=== PATIENT | female | born 1980 | race Caucasian/White ===

== ENCOUNTER 2016-07-12 21:57 | Emergency (ER) | payer OTHER ==
[~2016-07-12] VITALS: Ht 152.4 cm; Wt 48.5 kg
[2016-07-12 22:06] VITALS: Ht 152.4 cm; Wt 48.5 kg
[2016-07-12] MEDS ORDERED: ASPIRIN 81 MG TAB PO STA (23:29)
[2016-07-12] MEDS ORDERED: LORAZEPAM 2 MG INJ IV ONE (23:30)
--- NOTE | 2016-07-12 23:48 | RADRPT ---
PROCEDURE: XR Chest. CLINICAL INDICATION: Chest pain. TECHNIQUE: AP Portable chest. COMPARISON: None available FINDINGS: The soft tissues and bones are normal. No focal infiltrates, masses, or effusions are noted. The m ediastinum and heart are normal. No pneumothorax is present. IMPRESSION: 1. No radiographic evidence for acute cardiopulmonary disease 2. Hyperinflation and correlate with reactive airway disease. RPTAT: HDC .Theresa Stockton MD, MD Date Time Electronically viewed and signed by .Theresa Stockton MD, MD on 07/12/2016 23:48 .C/
[2016-07-12 23:55] LABS: CHLORIDE 107 mmol/L (97-110)
[2016-07-12 23:56] LABS: POTASSIUM 3.5 mmol/L (3.5-5.1); SODIUM 145 mmol/L (135-144)
[2016-07-12 23:58] LABS: CREATININE 0.64 mg/dl (0.44-1.00)
[2016-07-12 23:59] LABS: ANION GAP 17 (8-16); BLOOD UREA NITROGEN 14 mg/dl (7-20); CALCIUM 9.2 mg/dl (8.4-10.2); CARBON DIOXIDE 25 mmol/L (21-31); GLUCOSE 67 mg/dl (70-220)
[2016-07-13 00:03] LABS: PROTIME 13.2 Sec (12.2-14.2)
[2016-07-13 00:04] LABS: PARTIAL THROMBOPLASTIN TIME 32.3 Sec (25.0-35.0)
[2016-07-13 00:12] LABS: TROPONIN-I < 0.010 ng/ml (0.00-0.12)
[2016-07-13 00:20] LABS: BASOPHILS % 0.9 % (0.0-2.0); CONDITION 1; EOSINOPHILS # 0.1 10^3/ul (0.0-0.5); EOSINOPHILS % 2.5 % (0.0-7.0); HEMATOCRIT 31.1 % (37.0-47.0); HEMOGLOBIN 9.9 g/dl (12.0-16.0); LH ANALYZER COMMENTS 1; LYMPHOCYTES # 1.8 10^3/ul (0.8-2.9); LYMPHOCYTES % 33.5 % (15.0-51.0); MEAN CORPUSCULAR HEMOGLOBIN 23.3 pg (29.0-33.0); MEAN CORPUSCULAR HGB CONC 31.8 g/dl (32.0-37.0); MEAN CORPUSCULAR VOLUME 73.1 fl (82.0-101.0); MEAN PLATELET VOLUME 11.2 fl (7.4-10.4); MONOCYTE # 0.5 10^3/ul (0.3-0.9); MONOCYTES % 8.8 % (0.0-11.0); NEUTROPHIL # 2.9 10^3/ul (1.6-7.5); NEUTROPHILS % 54.3 % (39.0-77.0); PLATELET COUNT 242 10^3/UL (140-440); RED BLOOD COUNT 4.25 10^6/ul (4.20-5.40); RED CELL DISTRIBUTION WIDTH 16.8 % (11.5-14.5); SUSPECT 1; UNCORRECTED WBC 5.4 10^3/ul (4.8-10.8); WHITE BLOOD COUNT 5.4 10^3/ul (4.8-10.8)
[2016-07-13 03:42] LABS: URINE BLOOD (Dip) POC Negative (NEGATIVE)
[2016-07-13 03:55] VITALS: BP 108/69; PULSE 68; RESP 16; TEMP 98.9
--- NOTE | 2016-07-13 04:13 | ERD ---
ER Documentation Chief Complaint Date/Time DATE: 07/13/16 TIME: 04:11 Chief Complaint SOb, nausea, CP and L arm pain. ROS All systems reviewed and are negative except as per history of present illness. Allergies Allergies: Coded Allergies: No Known Allergy (Unverified , 07/12/16) PMhx/Soc Medical and Surgical Hx: pt denies Medical Hx History of Surgery: Yes ( x3, hysterectomy) Anesthesia Reaction: No Hx Neurological Disorder: No Hx Respiratory Disorders: No Hx Cardiac Disorders: No Hx Psychiatric Problems: No Hx Miscellaneous Medical Probl: No Hx Alcohol Use: Yes (social drinker) Hx Substance Use: No Hx Tobacco Use: No Smoking Status: Never smoker Physical Exam Vitals Vital Signs Date Time Temp Pulse Resp B/P Pulse Ox O2 Delivery O2 Flow Rate FiO2 07/13/16 03:55 98.9 68 16 108/69 99 Room Air 07/13/16 02:30 92 16 108/62 100 Nasal Cannula 2.0 07/12/16 23:55 98.9 74 16 126/79 100 Nasal Cannula 2.0 07/12/16 23:54 Nasal Cannula 2 07/12/16 22:06 97.8 91 100 124/64 100 Physical Exam Const: [] Head: Atraumatic Eyes: Normal Conjunctiva ENT: Normal External Ears, Nose and Mouth. Neck: Full range of motion..~ No meningismus. Resp: Clear to auscultation bilaterally Cardio: Regular rate and rhythm, no murmurs Abd: Soft, non tender, non distended. Normal bowel sounds Skin: No petechiae or rashes Back: No midline or flank tenderness Ext: No cyanosis, or edema Neur: Awake and alert Psych: Normal Mood and Affect Result Diagram: 07/12/165 07/12/162314 Results 24 hrs Laboratory Tests Test 07/12/16 23:15 07/13/16 02:22 07/13/16 03:42 Activated Partial Thromboplast Time 32.3Sec Anion Gap 17 Basophils # 0.010^3/ul Basophils % 0.9% Blood Morphology Comment Blood Urea Nitrogen 14mg/dl Calcium Level 9.2mg/dl Carbon Dioxide Level 25mmol/L Chloride Level 107mmol/L Creatinine 0.64mg/dl Eosinophils # 0.110^3/ul Eosinophils % 2.5% Glucose Level 67mg/dl Hematocrit 31.1% Hemoglobin 9.9g/dl INR International Normalized Ratio 1.00 Lymphocytes # 1.810^3/ul Lymphocytes % 33.5% Mean Corpuscular Hemoglobin 23.3pg Mean Corpuscular Hemoglobin Concent 31.8g/dl Mean Corpuscular Volume 73.1fl Mean Platelet Volume 11.2fl Monocytes # 0.510^3/ul Monocytes % 8.8% Neutrophils # 2.910^3/ul Neutrophils % 54.3% Nucleated Red Blood Cells # 0.010^3/ul Nucleated Red Blood Cells % 0.0/100WBC Platelet Count 38331^3/UL Potassium Level 3.5mmol/L Prothrombin Time 13.2Sec Prothrombin Time Ratio 1.0 Red Blood Count 4.2510^6/ul Red Cell Distribution Width 16.8% Sodium Level 145mmol/L Troponin I < 0.010ng/ml < 0.012ng/ml White Blood Count 5.410^3/ul Bedside Urine Blood Negative Bedside Urine Glucose (UA) Negative Bedside Urine Ketones (LAB) Negative Bedside Urine Leukocyte Esterase (L Negative Bedside Urine Nitrite (LAB) Negative Bedside Urine Protein (LAB) Negative Bedside Urine pH (LAB) 6.5 Current Medications Medications (Trade) Dose Ordered Sig/Colton Route PRN Reason Start Time Stop Time Status Last Admin Dose Admin Aspirin (Aspirin) 162 mg ONCE STAT PO 07/12/16 23:29 07/12/16 23:32 DC 07/12/16 23:49 Lorazepam (Ativan) 1 mg ONCE ONCE IV 07/12/16 23:30 07/12/16 23:32 DC 07/12/16 23:49 Procedures/MDM EKG: Rate/Rhythm: [Normal Sinus Rhythm] QRS, ST, T-waves: [No changes consistent w/ acute ischemia] Impression: [No evidence of ischemia or arrhythmia] The patient presents with chest pain. Vitals are stable. I considered pulmonary embolism, aortic dissection, pneumothorax among other diagnoses. Patient is PERC negative. Evaluation for acute coronary syndrome was performed. The HEART score was utilized for risk stratification and found to be <3. Repeat troponin @ 3 hours was unchanged. Based on this evaluation the patients risk of major adverse cardiac events is <1%. Shared decision making occurred with patient and the decision has been made to discharge the patient for outpatient evaluation and functional study within 72 hours. She was also noted to have anemia, and the patient admits that she has heavy periods sometimes twice a month. Patient instructed to arrange follow up with PCP in the next 2 days and return to the ED for any new or worsening symtpoms. 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 Departure Diagnosis: Primary Impression: Chest pain Chest pain type: unspecified Qualified Code: R07.9 - Chest pain, unspecified type Additional Impressions: Anemia Anemia type: other cause Other causes of anemia: other cause, not classified Qualified Code: D64.89 - Anemia due to other cause, not classified Anxiety Condition: Stable Patient Instructions: Anemia, Iron Deficiency (Adult), Anxiety Reaction, Chest Pain, Uncertain Cause Referrals: [facility] YOU HAVE RECEIVED A MEDICAL SCREENING EXAM AND THE RESULTS INDICATE THAT YOU DO NOT HAVE A CONDITION THAT REQUIRES URGENT TREATMENT IN THE EMERGENCY DEPARTMENT. FURTHER EVALUATION AND TREATMENT OF YOUR CONDITION CAN WAIT UNTIL YOU ARE SEEN IN YOUR DOCTORS OFFICE WITHIN THE NEXT 1-2 DAYS. IT IS YOUR RESPONSIBILITY TO MAKE AN APPOINTMENT FOR [facility]. IF YOU HAVE A PRIMARY DOCTOR --you should call your primary doctor and schedule an appointment IF YOU DO NOT HAVE A PRIMARY DOCTOR YOU CAN CALL OUR PHYSICIAN REFERRAL HOTLINE AT IF YOU CAN NOT AFFORD TO SEE A PHYSICIAN YOU CAN CHOSE FROM THE FOLLOWING [facility] [place] [facility] [address] [facility]. [facility] [address] [facility] [address] [facility] [address] [facility]. [facility] [address] [facility] [facility]. [address] TEGAN SWENSON DIRECTOR OF PLACEMENT [place] [address] [facility] [address] [place] [id number]JES VILLANUEVA [address] [place] [address] [address] [place] [place] [address] [place] [address] DR ZEPEDA, [facility] [address], [address], [place] [address] DR SHEARER, [facility] [address] [facility] [place] [address] [facility] [address] [place] [address] [address] [facility] [id number] - [address] ARDON, JOANNA [address], [place] [address] DR MENSAH, STEVE [address] [facility]. [address] [address] DR FERNÁNDEZ, [facility] [address] [place], [place] [address] MAXIMO LAURENT MD Jul 13, 2016 04:12
== END 2016-07-13 03:56 | disposition home or self-care (01) ==
LOC: E/R 21:57
DX: R07.9 Chest pain, unspecified (principal); R40.2142 Coma scale, eyes open, spontaneous, at arrival to emergency department; D64.89 Other specified anemias; F41.9 Anxiety disorder, unspecified; R40.2252 Coma scale, best verbal response, oriented, at arrival to emergency department; R40.2362 Coma scale, best motor response, obeys commands, at arrival to emergency department
CPT/HCPCS: 36415; 71010; 80048; 81003; 84484; 85025; 85610; 85730; 93005; 96374; J2060; Z7502; Z7610

== ENCOUNTER 2017-08-26 17:00 | Emergency (ER) | END 2017-08-26 20:27 | disposition home or self-care (01) ==